=== PATIENT | male | born 1945 | race Caucasian/White ===

== ENCOUNTER 2017-07-17 11:07 | Emergency (ER) | payer MEDICARE, OTHER ==
[~2017-07-17] VITALS: Ht 188 cm; Wt 79.5 kg
[2017-07-17 13:59] VITALS: BP 148/67
== END 2017-07-17 13:59 | disposition home or self-care (01) ==
LOC: EME 11:07
DX: S70.11XA Contusion of right thigh, initial encounter (principal); W55.22XA Struck by cow, initial encounter; Y93.89 Activity, other specified; Y92.79 Other farm location as the place of occurrence of the external cause
CPT/HCPCS: 93971; 99281; 99283